=== PATIENT | female | born 1970 | race Caucasian/White ===

== ENCOUNTER → 2017-04-14 | Outpatient (CLI) | payer OTHER ==
--- NOTE | 2017-04-18 11:39 | RADIOLOGY REPORT PS360 ---
DIG MAMM-SCREEN STEVE W/CAD CAD Screening COMPARISON: Digital mammograms 03/02/2015 and 03/22/2016 INDICATION: There is a history of breast cancer in the patient's paternal grandmother TECHNIQUE: Standard CC and MLO images were obtained. R2 CAD reviewed. FINDINGS: Scattered fibroglandular densities are seen throughout both breasts. Again noted is a mole marker left breast. There is stable asymmetric density upper outer quadrant right breast and there is a stable tiny nodular density axillary tail right breast. There is no suspicious lesion and no suspicious microcalcifications. IMPRESSION: Fibrofatty parenchyma with no suspicious lesion seen recommend yearly follow-up BI-RADS CATEGORY: 2_Benign RECOMMENDED FOLLOWUP: 12M 12 MONTH FOLLOW-UP (A letter has been sent to the patient regarding results of the study.)
== END ==
LOC: RAD 08:30
DX: Z12.31 Encounter for screening mammogram for malignant neoplasm of breast (principal)
CPT/HCPCS: G0202